=== PATIENT | female | born 1940 | race Caucasian/White ===

== ENCOUNTER 2016-07-31 11:52 | Day surgery (SDC) | payer OTHER, MEDICARE ==
[2016-07-30 15:11] VITALS: BMI 41.5
[2016-07-31] MEDS ORDERED: MIDAZOLAM HCL 2 MG/2 ML SINGLE DOSE VIAL ONE (14:58)
[2016-07-31] MEDS ORDERED: oxyCODONE HCL 5 MG TABLET PO PRN (16:51)
[2016-07-31] MEDS ORDERED: ONDANSETRON 4 MG/2 ML VIAL IVPUSH PRN (16:51)
[2016-07-31] MEDS ORDERED: LACTATED RINGERS SOLUTION 1,000 ML IV SCH (17:00)
[2016-07-31 17:11] VITALS: TEMP 97.3
[2016-07-31] MEDS ORDERED: oxyCODONE HCL 5 MG TABLET ONE (17:31)
[2016-07-31 18:06] VITALS: BP 120/65
[2016-07-31 18:19] VITALS: PULSE 76
--- NOTE | 2016-08-01 10:11 | OP ---
DATE OF OPERATION: 07/31/2016 PREOPERATIVE DIAGNOSIS: Osteoporosis with current pathologic fracture at T12. POSTOPERATIVE DIAGNOSIS: Osteoporosis with current pathologic fracture at T12. PROCEDURE PERFORMED: T12 kyphoplasty. SURGEON: Silvio Silveira MD ANESTHESIA: MAC. INDICATION: The patient is a 76-year-old female with severe pain from a T12 compression fracture. This has been refractory to management with multiple medications, including narcotic pain medication, as well as bracing. She is severely painful and has been symptomatic for several weeks. She is indicated for kyphoplasty. Risks, benefits, and alternatives of the surgery were discussed in detail with the patient and informed consent was obtained. DESCRIPTION: The patient was brought into the operating room by stretcher and transferred on to the OR table in the prone position. All bony prominences were padded, and the back was then prepped and draped in the usual sterile fashion. Two fluoroscopic C-arms were placed to allow for biplanar fluoroscopy. A timeout was performed. A mehdi was then placed over the skin for the entry point for the cannulas with a kyphoplasty kit. Lidocaine 1%, 6 mL, was introduced to each of these areas as local anesthetic and 2 cannulas were then inserted across the pedicles and into the T12 vertebral body through the transpedicular approach under fluoroscopic guidance. A drill followed by a curet was passed, and a biopsy was also sent off labeled "T12 vertebral body biopsy." Two balloons were inserted and inflated, showing an excellent fill across the vertebral body. The cement was then prepared on the back table and once it cured to an appropriate level 1-1/2 cannulas of cement were placed on either side with excellent fill without extravasation. Once the cement cured, the cannulas were then removed and final radiographs showed excellent position of the cement without extravasation. The wounds were then irrigated and closed with Dermabond. Steri-Strips were placed. The patient tolerated the procedure well, without complications. Rivka MASON/[id number]
--- NOTE | 2016-08-02 15:03 | PATH ---
Surgical Pathology Report Patient Name: LOUISA BENTON [facility]. Rec. #: [id number] /Age/Gender: 1940 (Age: 76) / F Account: [id number] Location: [facility] Taken: 07/31/2016 Received: 07/31/2016 Reported: 08/02/2016 Physicians: Silvio Silveira M.D. Specimen(s) Received T12 BIOPSY Clinical History T12 fracture Final Diagnosis BONE, T12, BIOPSY: BONE WITH TRILINEAGE MATURING MARROW ELEMENTS. NO METASTATIC PROCESS IDENTIFIED IN THE EXAMINED MATERIAL. Electronically Signed Scott Hillman M.D. Gross Description Received in formalin, labeled "T-12 biopsy" are 2 fischer, cylindrical portions of bone measuring 0.3 and 0.6 cm in length and averaging 0.1 cm diameter. The specimens are submitted in toto in one cassette, following decalcification. 08/01/201608/01/2016
== END 2016-07-31 18:30 | disposition home or self-care (01) ==
LOC: FASU 11:52
PROVIDERS: ATTEND Orthopaedic Surgery Orthopaedic Surgery of the Spine
PROC: 0PU43JZ Supplement Thoracic Vertebra with Synthetic Substitute, Percutaneous Approach (ICD-10-PCS; 2016-07-31)
PROC: 0PB43ZX Excision of Thoracic Vertebra, Percutaneous Approach, Diagnostic (ICD-10-PCS; 2016-07-31)
PROC: 0PS43ZZ Reposition Thoracic Vertebra, Percutaneous Approach (ICD-10-PCS; principal; 2016-07-31 13:30)
DX: M80.88XA Other osteoporosis with current pathological fracture, vertebra(e), initial encounter for fracture (principal)
CPT/HCPCS: 72100-TC; 76001-TC; 88305-TC; 88311-TC